=== PATIENT | male | born 2000 | race Caucasian/White ===

== ENCOUNTER 2022-04-09 12:27 | Emergency (ER) | payer OTHER ==
[2022-04-09 13:12] LABS: BASOPHIL 0.2 % (0-2); EOSINOPHIL 0 % (0-5); HCT 46.8 % (42.0-52.0); HGB 15.6 g/dl (13.2-18.0); LYMPHOCYTE 7.5 % (15-48); MCH 29.3 pg (25.0-31.0); MCHC 33.3 g/dL (32.0-36.0); MCV 87.8 fL (78.0-100.0); MPV 10.2 fL (6.0-9.5); NEUTROPHIL 85.9 % (41-80); NRBC 0; PLT 153 K/uL (150-400); RBC 5.33 M/uL (4.70-6.00); RDW 12.5 % (11.5-14.0); WBC 15.9 K/uL (4.0-10.5)
[2022-04-09 13:20] LABS: BILIRUBIN - TOTAL 3.4 mg/dL (0.2-1.0); BUN/CREAT RATIO (CALC) 11.4 RATIO; CREATININE 0.88 mg/dL (0.67-1.17); GLOBULIN (CALCULATION) 2.3 g/dL; POTASSIUM 3.6 mmol/L (3.5-5.1); TOTAL PROTEIN 6.3 g/dL (6.4-8.2)
[2022-04-09 13:32] LABS: BILIRUBIN NEGATIVE (NEGATIVE); BLOOD NEGATIVE Ery/uL (NEGATIVE); CLARITY CLEAR (CLEAR); COLOR YELLOW (YELLOW); GLUCOSE (U) NORMAL (NORMAL); LEUKOCYTES NEGATIVE Leu/uL (NEGATIVE); NITRITE NEGATIVE (NEGATIVE); PROTEIN TRACE (LOW) mg/dL (NEGATIVE); UROBILINOGEN 0.2 mg/dL (0.2-1.0)
[2022-04-09 13:45] LABS: CORONAVIRUS 2019 SARS-COV-2 NEGATIVE (NEGATIVE); INFLUENZA A NAA NEGATIVE (NEGATIVE)
[2022-04-09 13:54] LABS: LACTIC ACID 0.9 mmol/L (0.4-1.9)
== END 2022-04-09 17:29 | disposition home or self-care (01) ==
LOC: FER 12:27
PROVIDERS: Nurse Practitioner Family
DX: B34.9 Viral infection, unspecified (principal); Z20.822 Contact with and (suspected) exposure to COVID-19; Z28.310 Unvaccinated for COVID-19
CPT/HCPCS: 36415; 70450; 71045; 80053; 81003; 83605; 83690; 84145; 85025; 87040; 87880; 93005; J2405; J7030; J7120; Q9967; U0002